=== PATIENT | female | born 1970 ===

== ENCOUNTER 2024-04-09 12:52 | Outpatient (POV) | payer OTHER, SELFPAY ==
[2024-04-09 12:56] VITALS: BP 180/89; PULSE 82; RESP 18; O2SAT 99; BMI 27.1
--- NOTE | 2024-04-09 13:54 | A.OFFVIS_ITS ---
HPI Data of Consult Patient: known to practice within the last 3 years Consult date: 04/09/24 Requesting Physician: Nena Steve APRN Primary Care Provider: Deepak Smith MD Consult Narrative Reason for consult: Neck pain, low back pain, left leg pain History of present illness: Ms. Moreau is a 54 year old female who presents today as a transfer from the [facility] location. Today she rates her pain a 5 out of 10. She states that she continues to have the same chronic pain that she has been having. She states that her neck is still doing well other than some pulling sensations with certain positioning. She does state that she does continue to have numbness into her hands and is unsure if it is from her neck or what is going on. Patient does state her main complaint today is a tooth ache like sensation in her low back that does radiate into her left leg with numbness and tingling. She states the pain does interfere with her ability to perform activities of daily living such as cooking and cleaning. Patient has tried and failed conservative therapy. Patient is interested in any help we may be able to provide. Patient has had a SI injection along the left side as well as a left transforaminal epidural that did provide upwards of 100 % relief however only lasting temporarily. She states she is back to her baseline. Patient did previously have from a different provider a lumbar epidural about 3 years ago that did provide 100% relief for 3 years. She states that the compounded cream we ordered her did not really seem to add a whole lot of improvement. Her Aubrey has been reviewed and is appropriate. CC: Nena Steve APRN [facility] Disclaimer: The information contained in this section may have been updated after the patient was seen, as this information can be updated by other users. Medical History (Updated 04/09/24 @ 14:00 by Nena Steve APRN) Hyperlipidemia Hypertension Surgical History (Updated 04/09/24 @ 13:02 by Philippe Salinas RN) History of cholecystectomy Family History (Updated 04/09/24 @ 13:02 by Philippe Salinas RN) Other No significant family history Social History (Updated 04/09/24 @ 13:03 by Philippe Salinas RN) Smoking Status: Current every day smoker alcohol intake: never current occupational status: other Travel in the last 8 weeks: None Review of Systems Review of Systems Review of systems:: pertinent systems reviewed and negative unless documented below Review of systems (narrative): Review of Systems: General: No recent weight changes, no fever, no sleep disturbances Respiratory: No cough, no shortness of air, no recurring pulmonary infections Cardiovascular/peripheral vascular: No chest pain, no palpitations, no edema, no shortness of breath Gastrointestinal: No new onset incontinence, normal bowel movements reported Genitourinary: No new onset incontinence Musculoskeletal: Low back pain, left leg pain Psychiatric: [Normal mood/affect] Neurological: [Denies weakness in extremities], [denies balance issues] Meds Home Medications and Allergies New Prescriptions to Start Prescriptions: Objective Vital signs: Pulse Resp BP Pulse Ox O2 Del Method 82 18 180/89 H 99 Room Air 04/09/24 12:56 04/09/24 12:56 04/09/24 12:56 04/09/24 12:56 04/09/24 12:56 Narrative: Physical Exam: General: Alert and oriented x3, no acute distress, pleasant and cooperative Lungs: Respirations even and unlabored, symmetrical chest expansion Eyes: PERRL Musculoskeletal: Flexion and extension of lumbar [spine] somewhat guarded secondary to pain, [antalgic gait noted] positive left leg raise Neurological: Speech clear, no gross sensory deficit Assessment and Plan *Assessment and plan (1) Degenerative disc disease, lumbar: Status: Acute Category: Medical Code(s): M51.36 - Other intervertebral disc degeneration, lumbar region (2) Degenerative disc disease, cervical: Status: Acute Category: Medical Code(s): M50.30 - Other cervical disc degeneration, unspecified cervical region (3) Cervical radiculopathy: Status: Acute Category: Medical Code(s): M54.12 - Radiculopathy, cervical region (4) Lumbar radiculopathy: Status: Acute Category: Medical Code(s): M54.16 - Radiculopathy, lumbar region Plan Patient is experiencing worsening pain in her low back and left leg with limited range of motion positive left leg raise. I have discussed with the patient that she may benefit from a straightforward lumbar epidural steroid injection. Risk and benefits were discussed with the patient and she would like to proceed forward with this plan of care. Patient has tried and failed conservative therapy such as oral medications, heat and ice, topicals, physical therapy, continued at home stretching exercise planning injections. We will schedule the patient for an LESI L5-S1 under fluoroscopy. Patient has been instructed to contact the clinic with any concerns before the next appointment. Dr. Martinez has reviewed this note and agrees with this plan of care. This note was dictated using voice recognition software and make contain errors or omissions.
== END 2024-04-09 23:59 | disposition home or self-care (01) ==
PROVIDERS: PCP Internal Medicine; Visit Provider Nurse Practitioner Family
DX: M51.16 Intervertebral disc disorders with radiculopathy, lumbar region (principal); M50.10 Cervical disc disorder with radiculopathy, unspecified cervical region
CPT/HCPCS: 99202; G0463